=== PATIENT | male | born 1960 | race Caucasian/White ===

== ENCOUNTER → 2016-07-28 | Outpatient (CLI) | payer OTHER ==
[2016-07-28 09:48] LABS: CH 32.7; CHCM 35.2; HGB 16.3 gm/dL (13.0-17.5); MCH 32.3 pg (25.0-35.0); MCHC 34.6 g/dL (31.0-37.0); MCV 93.2 fL (80.0-100.0); Mean Platelet Volume 6.2; RBC 5.05 m/uL (4.30-5.90); RDW 13.1 % (11.5-15.5); WBC 6.5 k/uL (3.8-10.6)
[2016-07-28 10:20] LABS: ALT 36 U/L (21-72); AST 24 U/L (17-59); Alkaline Phosphatase 74 U/L (38-126); Anion Gap 11 mmol/L; Blood Urea Nitrogen 16 mg/dL (9-20); Calcium 9.3 mg/dL (8.4-10.2); Carbon Dioxide 26 mmol/L (22-30); Chloride 107 mmol/L (98-107); Cholesterol 160 mg/dL (<200); Glucose 103 mg/dL (74-99); HDL Cholesterol 70 mg/dL (40-60); Non-African American GFR(MDRD) >60 (>60 ml/min/1.73 sqM); Potassium 4.8 mmol/L (3.5-5.1); Sodium 144 mmol/L (137-145); Total Bilirubin 0.9 mg/dL (0.2-1.3); Total Protein 7.2 g/dL (6.3-8.2); Triglycerides 127 mg/dL (<150)
[2016-07-28 11:00] LABS: Hepatitis C Virus IgG Index 0.33
[2016-07-28 11:10] LABS: Hepatitis C Virus IgG Ab Negative (Negative)
== END | disposition home or self-care (01) ==
LOC: LABWHC1 09:12
PROVIDERS: ATTEND Family Medicine
DX: I10 Essential (primary) hypertension (principal); Z13.9 Encounter for screening, unspecified
CPT/HCPCS: 36415; 80053; 80061; 85027; 86803

== ENCOUNTER → 2016-08-29 | Outpatient (CLI) | payer OTHER ==
[2016-08-29 10:20] LABS: CH 33.3; CHCM 36.1; HDW 2.73; HGB 15.4 gm/dL (13.0-17.5); MCH 32.4 pg (25.0-35.0); MCV 92.6 fL (80.0-100.0); Mean Platelet Volume 7.6; RBC 4.76 m/uL (4.30-5.90); RDW 12.9 % (11.5-15.5); WBC 6.9 k/uL (3.8-10.6)
[2016-08-29 10:32] LABS: ALT 24 U/L (21-72); AST 21 U/L (17-59); Alkaline Phosphatase 83 U/L (38-126); Anion Gap 11 mmol/L; Blood Urea Nitrogen 21 mg/dL (9-20); Calcium 9.3 mg/dL (8.4-10.2); Carbon Dioxide 28 mmol/L (22-30); Chloride 102 mmol/L (98-107); Cholesterol 149 mg/dL (<200); Glucose 90 mg/dL (74-99); HDL Cholesterol 77 mg/dL (40-60); Non-African American GFR(MDRD) >60 (>60 ml/min/1.73 sqM); Potassium 4.7 mmol/L (3.5-5.1); Sodium 141 mmol/L (137-145); Total Bilirubin 0.9 mg/dL (0.2-1.3); Total Protein 7.6 g/dL (6.3-8.2); Triglycerides 74 mg/dL (<150)
== END | disposition home or self-care (01) ==
LOC: LABWHC1 08:27
PROVIDERS: ATTEND Family Medicine
DX: I10 Essential (primary) hypertension (principal)
CPT/HCPCS: 36415; 80053; 80061; 85027

== ENCOUNTER → 2018-06-22 | Outpatient (CLI) | payer OTHER ==
[2018-06-22 07:55] LABS: HCT 43.1 % (39.0-53.0); HGB 14.6 gm/dL (13.0-17.5); MCH 31.7 pg (25.0-35.0); MCHC 33.9 g/dL (31.0-37.0); MCV 93.6 fL (80.0-100.0); Mean Platelet Volume 6.3; Platelet Count 313 k/uL (150-450); RBC 4.61 m/uL (4.30-5.90); RDW 12.9 % (11.5-15.5); WBC 15.5 k/uL (3.8-10.6)
[2018-06-22 08:06] LABS: Appearance,Urine Clear (Clear); Bilirubin,Urine Negative (Negative); Blood,Urine Negative (Negative); Color,Urine Yellow; Glucose,Urine (UA) Negative (Negative); Ketones,Urine Negative (Negative); Leukocyte Esterase,Urine Negative (Negative); Nitrite,Urine Negative (Negative); Protein,Urine Negative (Negative); Specific Gravity,Urine 1.015 (1.001-1.035); Urobilinogen,Urine <2.0 mg/dL (<2.0)
[2018-06-22 11:58] LABS: Albumin 4.5 g/dL (3.80-4.90); Albumin/Globulin Ratio 2.25 (1.20-2.10); Anion Gap 10.9 mmol/L (4.00-12.00); Calcium 9.1 mg/dL (8.7-10.3); Carbon Dioxide 24.1 mmol/L (21.6-31.8); LDL Cholesterol,Calculated 69.2 mg/dL (0.0-131.0); Potassium 4.4 mmol/L (3.5-5.5); Total Bilirubin 0.8 mg/dL (0.2-1.2); Total Protein 6.5 g/dL (6.2-8.2); VLDL Calculation 14.8 mg/dL (5.00-40.00)
== END ==
LOC: LABWHC1 07:16
PROVIDERS: ATTEND Family Medicine
DX: Z00.01 Encounter for general adult medical examination with abnormal findings (principal)
CPT/HCPCS: 36415; 80053; 80061; 81003; 84153; 85027

== ENCOUNTER 2019-06-19 13:52 | Emergency (ER) | payer OTHER ==
[2019-06-19 14:15] VITALS: BP 142/94; PULSE 82; RESP 19; TEMP 97.8
--- NOTE | 2019-06-19 14:54 | ED ---
General Adult HPI - General Chief complaint: Recheck/Abnormal Lab/Rx Stated complaint: Abnormal Labs Time Seen by Provider: 06/19/19 14:27 Source: patient, RN notes reviewed Mode of arrival: ambulatory Limitations: no limitations - History of Present Illness Initial comments: 59-year-old male presents for elevated PT/INR. Patient is currently taking Co umadin. States he has been on this for about 8-10 years. 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 Patient states he had his monthly PT INR check today and got a call from Dr. Good that it was elevated. Patient was told to come to the emergency department. Patient denies bleeding from anywhere including epistaxis, rectal bleeding, hematuria. Denies headache. Denies any complaints at this time. States he did not take his Coumadin today.Patient has no other complaints at this time including shortness of breath, chest pain, abdominal pain, nausea or vomiting, headache, or visual changes. - Related Data Allergies Allergy/AdvReac Type Severity Reaction Status Date / Time No Known Allergies Allergy Verified 06/19/19 14:15 Review of Systems ROS Statement: Those systems with pertinent positive or pertinent negative responses have been documented in the HPI. ROS Other: All systems not noted in ROS Statement are negative. Past Medical History Past Medical History: Asthma, COPD, Deep Vein Thrombosis (DVT), Hyperlipidemia History of Any Multi-Drug Resistant Organisms: None Reported Past Surgical History: Hernia Repair Additional Past Surgical History / Comment(s): cataract surgery Past Psychological History: No Psychological Hx Reported Smoking Status: Never smoker Past Alcohol Use History: Occasional Past Drug Use History: Marijuana General Exam Limitations: no limitations General appearance: alert, in no apparent distress Head exam: Present: atraumatic Eye exam: Present: normal appearance, PERRL, EOMI. Absent: scleral icterus, conjunctival injection, periorbital swelling ENT exam: Present: normal exam, mucous membranes moist Neck exam: Present: normal inspection Respiratory exam: Present: normal lung sounds bilaterally. Absent: respiratory distress, wheezes, rales, rhonchi, stridor Cardiovascular Exam: Present: regular rate, normal rhythm, normal heart sounds. Absent: systolic murmur, diastolic murmur, rubs, gallop, clicks Course Vital Signs 06/19/19 14:11 Temperature 97.8 F Pulse Rate 82 Respiratory 19 Rate Blood Pressure 142/94 O2 Sat by Pulse 96 Oximetry Medical Decision Making - Medical Decision Making vitals are stable. Physical exam is unremarkable. PT/INR from blood draw earlier today was reviewed and is 6.6. discussed this case with Dr. Thao. Recommendations are to hold Coumadin for any INR between 5 and 10. Vitamin K is contraindicated at this point. Patient is not having any bleeding. We do not see any validity and repeating the PT/INR so closely to the first blood draw. Recommend the patient hold his Coumadin for 2 days and have his INR repeated on Monday. Recommend that he discussed this plan with Dr. Good today so he is on board. Recommend he return here to any bleeding or any other worsening symptoms. Discussed increased risk of bleeding including with hitting his head or headache. Disposition Clinical Impression: Elevated INR Disposition: HOME SELF-CARE Condition: Good Instructions (If sedation given, give patient instructions): Elevated INR (ED) Additional Instructions: please hold Coumadin for the next 2 days. Please have this rechecked outpatient on Monday. Call Dr. Good today to discuss this plan with him. Return to the emergency department if you have any worsening symptoms or bleeding. Is patient prescribed a controlled substance at d/c from ED?: No Referrals: Suhas Good MD [Primary Care Provider] - 1-2 days Time of Disposition: 14:53
== END 2019-06-19 15:00 | disposition home or self-care (01) ==
LOC: EC 13:52
DX: R79.1 Abnormal coagulation profile (principal); Z79.01 Long term (current) use of anticoagulants; Z86.718 Personal history of other venous thrombosis and embolism
CPT/HCPCS: 99282

== ENCOUNTER → 2019-06-19 | Outpatient (CLI) | payer OTHER ==
[2019-06-19 11:05] LABS: HCT 42.3 % (39.0-53.0); HGB 14.9 gm/dL (13.0-17.5); MCH 32.8 pg (25.0-35.0); MCHC 35.1 g/dL (31.0-37.0); MCV 93.3 fL (80.0-100.0); Mean Platelet Volume 6.9; Platelet Count 338 k/uL (150-450); RBC 4.53 m/uL (4.30-5.90); RDW 12.7 % (11.5-15.5); WBC 7.1 k/uL (3.8-10.6)
[2019-06-19 12:03] LABS: Prothrombin Time 63.6 sec (9.0-12.0)
[2019-06-19 12:11] LABS: INR 6.6 (<1.2)
[2019-06-19 16:31] LABS: ALT 16 U/L (10-49); AST 22 U/L (14-35); African American GFR (CKD) 111.7 (60.0-200.0); Albumin/Globulin Ratio 2.37 (1.60-3.17); Alkaline Phosphatase 73 U/L (41-126); Chloride 104 mmol/L (96-109); Chol/HDL Ratio 1.86; Cholesterol 143 mg/dL (0-200); Globulin 1.9 g/dL (1.6-3.3); Glucose 92 mg/dL (70-110); Non-African American GFR(CKD) 96.4 (60.0-200.0); Potassium 4.5 mmol/L (3.5-5.5); Sodium 140 mmol/L (135-145); Total Bilirubin 0.5 mg/dL (0.2-1.2); Total Protein 6.4 g/dL (6.2-8.2); Triglycerides <50.0 mg/dL (0.0-149.0)
[2019-06-19 16:41] LABS: Appearance,Urine Clear (Clear); Bilirubin,Urine Negative (Negative); Blood,Urine Negative (Negative); Color,Urine Yellow; Glucose,Urine (UA) Negative (Negative); Ketones,Urine Negative (Negative); Leukocyte Esterase,Urine Negative (Negative); Nitrite,Urine Negative (Negative); PH, Urine 7.5 (5.0-8.0); Protein,Urine Negative (Negative); Specific Gravity,Urine 1.016 (1.001-1.035)
== END | disposition home or self-care (01) ==
LOC: LABWHC1 10:27
PROVIDERS: ATTEND Family Medicine
DX: Z00.01 Encounter for general adult medical examination with abnormal findings (principal); I82.509 Chronic embolism and thrombosis of unspecified deep veins of unspecified lower extremity
CPT/HCPCS: 36415; 80053; 80061; 81003; 84153; 85027; 85610

== ENCOUNTER → 2019-06-21 | Outpatient (CLI) | payer OTHER ==
[2019-06-21 11:41] LABS: INR 2.9 (<1.2); Prothrombin Time 27.7 sec (9.0-12.0)
== END | disposition home or self-care (01) ==
LOC: LABWHC1 09:41
PROVIDERS: ATTEND Family Medicine
DX: I82.509 Chronic embolism and thrombosis of unspecified deep veins of unspecified lower extremity (principal)
CPT/HCPCS: 36415; 85610

== ENCOUNTER 2023-04-28 11:09 | Day surgery (SDC) | payer OTHER ==
[2023-04-27 08:46] VITALS: BMI 28.5
[~2023-04-28 11:09] MED LIST: LACTATED RINGERS 1,000 ML IV SCH
[2023-04-28 12:57] VITALS: RESP 16; TEMP 97
[2023-04-28] MEDS ORDERED: PROPOFOL 10 MG/ML 20 ML VIAL IV ONE (13:30)
--- NOTE | 2023-04-28 13:42 | P.PCN ---
Date of Procedure: 04/28/23 Procedure(s) Performed: BRIEF HISTORY: Patient is a 62-year-old pleasant white male scheduled for an elective colonoscopy as a part of screening for colon cancer. PROCEDURE PERFORMED: Colonoscopy. PREOPERATIVE DIAGNOSIS: Screening for colon cancer. IV sedation per Anesthesia. PROCEDURE: After informed consent was obtained, the patient, was brought into the endoscopy unit. IV sedation was administered by Anesthesia under continuous monitoring. Digital rectal examination was normal. Initially the Olympus CF-160 flexible video colonoscope was then inserted in the rectum, gradually advanced into the cecum without any difficulty. Careful examination was performed as the scope was gradually being withdrawn. Ileocecal valve and the appendiceal orifice were visualized and appeared normal. Prep was excellent. Mucosa of the cecum, ascending colon, transverse colon, descending colon, sigmoid colon, and rectum appeared normal. Scattered sigmoid diverticula cyst. Retroflexion was performed in the rectum and no lesions were seen. The patient tolerated the procedure well. IMPRESSION: Normal-appearing colon from rectum to cecum with no evidence of colorectal neoplasia . Scattered sigmoid diverticulosis. RECOMMENDATIONS: Findings of this examination were discussed with the patient as well as his family. He was advised to have a repeat screening colonoscopy in 10 years..
[2023-04-28 14:20] VITALS: BP 142/87; PULSE 84
== END 2023-04-28 16:27 | disposition home or self-care (01) ==
LOC: ORWHC2ENDO 11:09
PROVIDERS: ATTEND Internal Medicine Gastroenterology
DX: Z12.11 Encounter for screening for malignant neoplasm of colon (principal); K57.30 Diverticulosis of large intestine without perforation or abscess without bleeding; I10 Essential (primary) hypertension; E78.5 Hyperlipidemia, unspecified; J45.909 Unspecified asthma, uncomplicated; J44.9 Chronic obstructive pulmonary disease, unspecified; Z79.51 Long term (current) use of inhaled steroids; Z86.718 Personal history of other venous thrombosis and embolism; Z79.899 Other long term (current) drug therapy
CPT/HCPCS: 45378; J2704

== ENCOUNTER 2024-12-16 11:10 | Observation (INO) | payer MEDICARE, OTHER ==
[2024-12-16] MEDS: ASPIRIN 81 MG PO STA (11:58)
[2024-12-16 11:59] LABS: Basophils # (A) 0.04 10*3/uL (0.00-0.10); Basophils % (A) 0.6 %; Eosinophils # (A) 0.15 10*3/uL (0.04-0.35); Eosinophils % (A) 2.1 %; HCT 38.9 % (39.6-50.0); HGB 14.4 g/dL (13.0-17.0); Lymphocytes % (A) 15.7 %; MCH 34.6 pg (27.0-32.0); MCV 93.5 fL (80.0-97.0); Mean Platelet Volume 8.7 fL (9.5-12.2); Monocytes # (A) 1.13 10*3/uL (0.20-1.00); Monocytes % (A) 16.1 %; Neutrophils # (A) 4.55 10*3/uL (1.80-7.70); Neutrophils % (A) 65.1 %; Platelet Count 246 10*3/uL (140-440); RBC 4.16 10*6/uL (4.40-5.60); RDW 12.1 % (11.5-14.5)
[2024-12-16] MEDS: NITROGLYCERIN OINT 1 INCH/GM PACKET TOPICAL STA (11:59)
[2024-12-16 12:12] LABS: ALT 25 U/L (4-49); AST 30 U/L (17-59); African American GFR (CKD) >90 (>60 ml/min/1.73 sqM); Albumin 4.2 g/dL (3.5-5.0); Alkaline Phosphatase 100 U/L (38-126); Anion Gap 8 mmol/L; Blood Urea Nitrogen 9 mg/dL (9-20); Calcium 9.7 mg/dL (8.4-10.2); Carbon Dioxide 25 mmol/L (22-30); Chloride 96 mmol/L (98-107); Glucose 98 mg/dL (74-99); Magnesium 1.9 mg/dL (1.6-2.3); Non-African American GFR(CKD) >90 (>60 ml/min/1.73 sqM); Sodium 129 mmol/L (137-145); Total Bilirubin 0.6 mg/dL (0.2-1.3)
[2024-12-16 12:17] LABS: INR 1.9 (<1.2); Partial Thromboplastin Time 29.7 sec (22.0-30.0); Prothrombin Time 19.3 sec (10.0-12.5)
--- NOTE | 2024-12-16 12:28 | XR ---
EXAMINATION TYPE: XR chest 2V DATE OF EXAM: 12/16/2024 12:14 PM COMPARISON: 06/03/2015 CLINICAL INDICATION: Male, 64 years old with history of Chest Pain, TECHNIQUE: XR chest 2V view(s) obtained. FINDINGS: The heart size is normal. The pulmonary vasculature is normal. The lungs are clear. IMPRESSION: 1. No acute pulmonary process. [facility], , 12/16/2024 12:25 PM
[2024-12-16] MEDS ORDERED: DOCUSATE 100 MG CAP PO PRN (14:12)
[2024-12-16] MEDS ORDERED: PROCHLORPERAZINE 5 MG TAB PO PRN (14:12)
[2024-12-16] MEDS ORDERED: NITROGLYCERIN SL TABS 0.4 MG TAB SUBLINGUAL PRN (14:15)
--- NOTE | 2024-12-16 14:18 | P.HPIM ---
History of Present Illness H&P Date: 12/16/24 Patient is a 64-year-old male with past medical history of DVT for than 20 years ago on Coumadin, unclear why, reports only 1 episode of DVT, HLD, COPD, who presented to the ER on 12/16 with chest pain. Started having symptoms 2 weeks ago, reports intermittent chest pain, left-sided, nonradiating, not associated with shortness of breath, sweating, nausea, vomiting. States that it can occur at any time including nighttime, he is able to cut the grass and stay active, reports that the pain gets better when he leans forward. No other elevating factors, denies noticing any aggravating factors. He denies any recent travels, compliant with Coumadin. No previous history of heart attacks, no dizziness, lightheadedness. No recent viral infections, no fevers, chills, abdominal pain. On arrival afebrile, heart rate in 80s, BP 135/85, SpO2 98% on room air. Lab work showed normal WBC count, hemoglobin, platelet count. INR 1.9, PT 19.3, D-dimer negative. Sodium 129, normal potassium, chloride 96, creatinine 0.54, normal GFR, calcium, and liver enzymes, troponin negative. Chest x-ray showed no evidence of acute pulmonary process. Patient will be admitted under observation for further evaluation of chest pain, cardiology consultation. Pertinent positives and negatives as discussed in HPI, a complete review of systems was performed and all other systems are negative. Patient seen and examined at bedside. Vital signs reviewed General: nontoxic, no distress, appears at stated age Derm: warm, dry Head: atraumatic, normocephalic, symmetric Eyes: EOMI, no lid lag, anicteric sclera, pupils equal round reactive to light ENT: Nose and ears atraumatic Neck: No thyromegaly, supple Mouth: no lip lesion, mucus membranes moist Cardiovascular: S1S2 reg, no murmur, no edema Lungs: clear to auscultation bilateral, no rhonchi, no rales, no wheeze, no accessory muscle use Abdominal: soft, nontender to palpation, no guarding, no appreciable organomegaly Ext: no gross muscle atrophy, muscle strength muscle strength 5 out of 5 in all 4 extremities, no contractures Neuro: CN II-XII grossly intact Psych: Alert, oriented, appropriate affect Assessment/Plan: Atypical chest pain - Check TSH, A1c, lipid panel, trend troponin - Start aspirin 81 mg daily - Cardiology consulted, appreciate recommendations -Sublingual nitroglycerin as needed Hypertension: Continue home lisinopril/hydrochlorothiazide 10/12.5 daily Hypochloremic hyponatremia -Start NS at 120 cc/h, monitor BMP in the morning History of DVT: Pharmacy to dose warfarin COPD, not in acute exacerbation, continue Incruse Ellipta 62.5 daily, Wixela 250/50 twice daily The patient is admitted with an anticipated less than 2 midnight stay as observation status for evaluation of chest pain, hyponatremia. CODE STATUS: Full DVT prophylaxis: Warfarin Anticipated discharge date: TBD Anticipated discharge place: Home A total of 40 minutes was spent on the care of this complex patient more than 50% of the time was spent in counseling and care coordination. Past Medical History Past Medical History: Asthma, Cancer, COPD, Deep Vein Thrombosis (DVT), Hyperlipidemia, Hypertension Additional Past Medical History / Comment(s): Hx skin cancer on chest, head and shoulder. History of Any Multi-Drug Resistant Organisms: None Reported Past Surgical History: Hernia Repair Additional Past Surgical History / Comment(s): Cataract surgery. Past Anesthesia/Blood Transfusion Reactions: No Reported Reaction Past Psychological History: No Psychological Hx Reported Smoking Status: Never smoker Past Alcohol Use History: Daily Past Drug Use History: Marijuana - Past Family History Father Family Medical History: Cancer Medications and Allergies Home Medications Medication Instructions Recorded Confirmed Type Lisinopril-Hctz 10-12.5 mg 1 tab PO DAILY 04/27/23 12/16/24 History [Zestoretic 10-12.5] Warfarin Sodium 5 mg PO MOTUTHFRSA@2100 04/27/23 12/16/24 History Warfarin Sodium 10 mg PO SUWE@2100 04/27/23 12/16/24 History Fluticasone Propion/Salmeterol 1 puff INHALATION RT-BID 12/16/24 12/16/24 History [Wixela 250-50 Inhub] Umeclidinium [place] [Incruse 1 puff INHALATION RT-DAILY 12/16/24 12/16/24 History Ellipta] [facility](Unknown) 1 tab PO DAILY 12/16/24 12/16/24 History [facility] Fiber Caps(Unknown) 1 cap PO DAILY 12/16/24 12/16/24 History Allergies Allergy/AdvReac Type Severity Reaction Status Date / Time No Known Allergies Allergy Verified 12/16/24 12:54 Physical Exam Vitals: Vital Signs Temp Pulse Pulse Resp BP Pulse Ox 12/16/24 12:00 81 18 130/81 94 L 12/16/24 11:24 83 12/16/24 11:11 97.6 F 88 16 135/85 98 Intake and Output 12/15/24 12/16/24 12/16/24 22:59 06:59 14:59 Other: Weight 83.915 kg Results CBC & Chem 7: 12/16/24 11:51 12/16/24 11:51 Labs: Abnormal Lab Results - Last 24 Hours (Table) 12/16/24 12/16/24 12/16/24 Range/Units 11:51 11:51 11:51 RBC 4.16 L (4.40-5.60) 10*6/uL Hct 38.9 L (39.6-50.0) % MCH 34.6 H (27.0-32.0) pg MPV 8.7 L (9.5-12.2) fL Monocytes # 1.13 H (0.20-1.00) 10*3/uL PT 19.3 H (10.0-12.5) sec INR 1.9 H (<1.2) Sodium 129 L (137-145) mmol/L Chloride 96 L (98-107) mmol/L Creatinine 0.54 L (0.66-1.25) mg/dL
[2024-12-16] MEDS: SODIUM CHLORIDE 0.9% 1,000 ML IV SCH (14:28)
--- NOTE | 2024-12-16 15:11 | ED ---
General Adult HPI - General Chief complaint: Chest Pain Stated complaint: Chest pain Time Seen by Provider: 12/16/24 11:15 Source: patient, RN notes reviewed, old records reviewed Mode of arrival: ambulatory Limitations: no limitations - History of Present Illness Initial comments: This is a 64-year-old male who presents to the emergency department stating he has had intermittent chest pain for the last 2 weeks. Patient states the last week is gotten considerably worse. Patient states when it comes it lasts for about 5 minutes or so and then eventually subsides. Patient states he has some radiation into his left arm as well. Patient denies any diaphoretic episode. Patient denies any difficulty breathing. Patient denies any recent fever chills or cough. Patient denies abdominal pain patient has nausea vomiting - Related Data Home Medications Medication Instructions Recorded Confirmed Lisinopril-Hctz 10-12.5 mg 1 tab PO DAILY 04/27/23 12/16/24 [Zestoretic 10-12.5] Warfarin Sodium 5 mg PO MOTUTHFRSA@2100 04/27/23 12/16/24 Warfarin Sodium 10 mg PO SUWE@2100 04/27/23 12/16/24 Fluticasone Propion/Salmeterol 1 puff INHALATION RT-BID 12/16/24 12/16/24 [Wixela 250-50 Inhub] Umeclidinium [place] [Incruse 1 puff INHALATION RT-DAILY 12/16/24 12/16/24 Ellipta] [facility](Unknown) 1 tab PO DAILY 12/16/24 12/16/24 [facility] Fiber Caps(Unknown) 1 cap PO DAILY 12/16/24 12/16/24 Allergies Allergy/AdvReac Type Severity Reaction Status Date / Time No Known Allergies Allergy Verified 12/16/24 12:54 Review of Systems ROS Statement: Those systems with pertinent positive or pertinent negative responses have been documented in the HPI. ROS Other: All systems not noted in ROS Statement are negative. Past Medical History Past Medical History: Asthma, Cancer, COPD, Deep Vein Thrombosis (DVT), Hyperlipidemia, Hypertension Additional Past Medical History / Comment(s): Hx skin cancer on chest, head and shoulder. History of Any Multi-Drug Resistant Organisms: None Reported Past Surgical History: Hernia Repair Additional Past Surgical History / Comment(s): Cataract surgery. Past Anesthesia/Blood Transfusion Reactions: No Reported Reaction Past Psychological History: No Psychological Hx Reported Smoking Status: Never smoker Past Alcohol Use History: Daily Past Drug Use History: Marijuana - Past Family History Father Family Medical History: Cancer General Exam - General Exam Comments Initial Comments: GENERAL: Patient is well-developed and well-nourished. Patient is nontoxic and well- hydrated and is in mild distress. ENT: Neck is soft and supple. No significant lymphadenopathy is noted. Oropharynx is clear. Moist mucous membranes. Neck has full range of motion without eliciting any pain. EYES: The sclera were anicteric and conjunctiva were pink and moist. Extraocular movements were intact and pupils were equal round and reactive to light. Eyelids were unremarkable. PULMONARY: Unlabored respirations. Good breath sounds bilaterally. No audible rales rho nchi or wheezing was noted. CARDIOVASCULAR: There is a regular rate and rhythm without any murmurs gallops or rubs. ABDOMEN: Soft and nontender with normal bowel sounds. SKIN: Skin is clear with no lesions or rashes and otherwise unremarkable. NEUROLOGIC: Patient is alert and oriented x3. Cranial nerves II through XII are grossly intact. Motor and sensory are also intact. Normal speech, volume and content. Symmetrical smile. MUSCULOSKELETAL: Normal extremities with adequate strength and full range of motion. LYMPHATICS: No significant lymphadenopathy is noted PSYCHIATRIC: Normal psychiatric evaluation. Limitations: no limitations Course Vital Signs 12/16/24 12/16/24 12/16/24 11:11 11:24 12:00 Temperature 97.6 F Pulse Rate 88 81 Pulse Rate [ 83 Yacht Captain ] Respiratory 16 18 Rate Blood Pressure 135/85 130/81 O2 Sat by Pulse 98 94 L Oximetry 12/16/24 13:40 Temperature Pulse Rate 78 Pulse Rate [ Yacht Captain ] Respiratory 18 Rate Blood Pressure 107/75 O2 Sat by Pulse 97 Oximetry Medical Decision Making - Medical Decision Making EKG is interpreted by myself. EKG shows sinus rhythm at 83 bpm parable is 242 QRS 103 QT interval is 369 QTc is 408. Patient's EKG shows no ST segment ovation or depression. Was pt. sent in by a medical professional or institution (, PA, CARRY IN WORKER, urgent care, hospital, or retirement...) When possible be specific @ -No Did you speak to anyone other than the patient for history (EMS, parent, family, police, friend...)? What history was obtained from this source @ -No Did you review nursing and triage notes (agree or disagree)? Why? @ -I reviewed and agree with nursing and triage notes Were old charts reviewed (outside hosp., previous admission, EMS record, old EKG, old radiological studies, urgent care reports/EKG's, retirement records)? Report findings @ -No old charts were reviewed Differential Diagnosis? @ -Differential Chest Pain: Stable Angina, Unstable Angina, STEMI, NSTEMI Aortic Dissection, Pneumothorax, Musculoskeletal, Esophageal Spasm GERD, Cholecystitis, Pancreatitis, Zoster, this is not meant to be an all-inclusive list. EKG interpreted by me (3pts min.). @ -As above X-rays interpreted by me (1pt min.). @ -Chest x-ray shows no acute abnormality CT interpreted by me (1pt min.). @ -None done U/S interpreted by me (1pt. min.). @ -None done What testing was considered but not performed or refused? (CT, X-rays, U/S, labs)? Why? @ -None What meds were considered but not given or refused? Why? @ -None Did you discuss the management of the patient with other professionals (professionals i.e. , PA, CARRY IN WORKER, lab, RT, psych nurse, social insurance adviser, sat math tutor, teacher, environmental health officer, adult protective caseworker)? Give summary @ -I spoke with the sound physicians agreed to meet the patient admit the patie nt recommending orders Was smoking cessation discussed for >3mins.? @ -No Was critical care preformed (if so, how long)? @ -No Were there social determinants of health that impacted care today? How? ( Homelessness, low income, unemployed, alcoholism, drug addiction, transportation, low edu. Level, literacy, decrease access to med. care, mcc, rehab)? @ -No Was there de-escalation of care discussed even if they declined (Discuss DNR or withdrawal of care, Hospice)? DNR status @ -No What co-morbidities impacted this encounter? (DM, HTN, Smoking, COPD, CAD, Cancer, CVA, ARF, Chemo, Hep., AIDS, mental health diagnosis, sleep apnea, morbid obesity)? @ -None Was patient admitted / discharged? Hospital course, mention meds given and route, prescriptions, significant lab abnormalities, going to OR and other pertinent info. @ -Patient's chest pain came and went multiple times during the ED stay. There was no ST segment elevation. Patient had no elevated troponin. Patient's chest x-ray is normal and the rest of lab work was relatively normal. I spoke with sound physicians agreed to admit the patient admit the patient I consulted cardiology Undiagnosed new problem with uncertain prognosis? @ -No Drug Therapy requiring intensive monitoring for toxicity (Heparin, Nitro, Insulin, Cardizem)? @ -No Were any procedures done? @ -No Diagnosis/symptom? @ -Chest pain Acute, or Chronic, or Acute on Chronic? @ -acute Uncomplicated (without systemic symptoms) or Complicated (systemic symptoms)? @ -Complicated Side effects of treatment? @ -No Exacerbation, Progression, or Severe Exacerbation? @ -No Poses a threat to life or bodily function? How? (Chest pain, USA, SC, pneumonia, PE, COPD, DKA, ARF, appy, cholecystitis, CVA, Diverticulitis, Homicidal, Suicidal, threat to staff... and all critical care pts) @ -Yes this can lead to SC and endorgan dysfunction - Lab Data Result diagrams: 12/16/24 11:51 12/16/24 11:51 Lab Results 12/16/24 12/16/24 12/16/24 Range/Units 11:51 11:51 11:51 WBC 7.00 (4.50-10.00) 10*3/uL RBC 4.16 L (4.40-5.60) 10*6/uL Hgb 14.4 (13.0-17.0) g/dL Hct 38.9 L (39.6-50.0) % MCV 93.5 (80.0-97.0) fL MCH 34.6 H (27.0-32.0) pg MCHC 37.0 (32.0-37.0) g/dL Plt Count 246 (140-440) 10*3/uL MPV 8.7 L (9.5-12.2) fL Immature Gran % (Auto) 0.4 % Neutrophils % 65.1 % Lymphocytes % 15.7 % Monocytes % 16.1 % Eosinophils % 2.1 % Basophils % 0.6 % Immature Gran # 0.03 (0.00-0.04) 10*3/uL Neutrophils # 4.55 (1.80-7.70) 10*3/uL Lymphocytes # 1.10 (0.90-5.00) 10*3/uL Monocytes # 1.13 H (0.20-1.00) 10*3/uL Eosinophils # 0.15 (0.04-0.35) 10*3/uL Basophils # 0.04 (0.00-0.10) 10*3/uL PT 19.3 H (10.0-12.5) sec INR 1.9 H (<1.2) APTT 29.7 (22.0-30.0) sec D-Dimer <0.17 (<0.60) mg/L FEU Sodium 129 L (137-145) mmol/L Potassium 4.0 (3.5-5.1) mmol/L Chloride 96 L (98-107) mmol/L Carbon Dioxide 25 (22-30) mmol/L Anion Gap 8 mmol/L BUN 9 (9-20) mg/dL Creatinine 0.54 L (0.66-1.25) mg/dL Est GFR (CKD-EPI)AfAm >90 (>60 ml/min/1.73 sqM) Est GFR (CKD-EPI)NonAf >90 (>60 ml/min/1.73 sqM) Glucose 98 (74-99) mg/dL Calcium 9.7 (8.4-10.2) mg/dL Magnesium 1.9 (1.6-2.3) mg/dL Total Bilirubin 0.6 (0.2-1.3) mg/dL AST 30 (17-59) U/L ALT 25 (4-49) U/L Alkaline Phosphatase 100 (38-126) U/L Troponin I (0.000-0.034) ng/mL Total Protein 7.0 (6.3-8.2) g/dL Albumin 4.2 (3.5-5.0) g/dL TSH (0.465-4.680) mIU/L 12/16/24 12/16/24 Range/Units 11:51 11:51 WBC (4.50-10.00) 10*3/uL RBC (4.40-5.60) 10*6/uL Hgb (13.0-17.0) g/dL Hct (39.6-50.0) % MCV (80.0-97.0) fL MCH (27.0-32.0) pg MCHC (32.0-37.0) g/dL Plt Count (140-440) 10*3/uL MPV (9.5-12.2) fL Immature Gran % (Auto) % Neutrophils % % Lymphocytes % % Monocytes % % Eosinophils % % Basophils % % Immature Gran # (0.00-0.04) 10*3/uL Neutrophils # (1.80-7.70) 10*3/uL Lymphocytes # (0.90-5.00) 10*3/uL Monocytes # (0.20-1.00) 10*3/uL Eosinophils # (0.04-0.35) 10*3/uL Basophils # (0.00-0.10) 10*3/uL PT (10.0-12.5) sec INR (<1.2) APTT (22.0-30.0) sec D-Dimer (<0.60) mg/L FEU Sodium (137-145) mmol/L Potassium (3.5-5.1) mmol/L Chloride (98-107) mmol/L Carbon Dioxide (22-30) mmol/L Anion Gap mmol/L BUN (9-20) mg/dL Creatinine (0.66-1.25) mg/dL Est GFR (CKD-EPI)AfAm (>60 ml/min/1.73 sqM) Est GFR (CKD-EPI)NonAf (>60 ml/min/1.73 sqM) Glucose (74-99) mg/dL Calcium (8.4-10.2) mg/dL Magnesium (1.6-2.3) mg/dL Total Bilirubin (0.2-1.3) mg/dL AST (17-59) U/L ALT (4-49) U/L Alkaline Phosphatase (38-126) U/L Troponin I <0.012 (0.000-0.034) ng/mL Total Protein (6.3-8.2) g/dL Albumin (3.5-5.0) g/dL TSH 2.500 (0.465-4.680) mIU/L Disposition Clinical Impression: Chest pain Disposition: ADMITTED IP TO THIS HOSP Referrals: Suhas Good MD [Primary Care Provider] - 1-2 days Time of Disposition: 15:12
[2024-12-16 18:35] LABS: Chol/HDL Ratio 1.71 Ratio; LDL Cholesterol,Calculated 48.1 mg/dL (0.0-131.0)
[2024-12-16] MEDS: SYMBICORT 80-4.5 MCG INHALER INHALATION SCH (19:42)
[2024-12-16] MEDS: WARFARIN 5 MG TAB PO ONE (21:11)
[2024-12-16] MEDS ORDERED: LORazepam 1 MG TAB PO PRN ×3 (23:12)
[2024-12-16] MEDS ORDERED: LORazepam 0.5 MG TAB PO PRN (23:12)
[2024-12-17 05:59] LABS: INR 1.8 (<1.2); Prothrombin Time 18.4 sec (10.0-12.5)
[2024-12-17] MEDS: TIOTROPIUM 2.5 MCG INHALER INHALATION SCH (08:06)
[2024-12-17 08:25] LABS: BUN/Creat Ratio 15.17 Ratio (12.00-20.00); Blood Urea Nitrogen 9.1 mg/dL (9.0-27.0); Calcium 8.4 mg/dL (8.7-10.3); Carbon Dioxide 24.4 mmol/L (21.6-31.8); Chloride 102 mmol/L (96-109); Glucose 99 mg/dL (70-110); Potassium 4.1 mmol/L (3.5-5.5); Sodium 135 mmol/L (135-145)
[2024-12-17] MEDS: ASPIRIN 81 MG PO SCH (08:51)
[2024-12-17] MEDS: FOLIC ACID 1 MG TAB PO SCH (08:51)
[2024-12-17] MEDS: THIAMINE 100 MG TAB PO SCH (08:51)
[2024-12-17] MEDS: LISINOPRIL-HCTZ 10-12.5 MG 1 EACH TAB PO SCH (08:52)
--- NOTE | 2024-12-17 12:57 | P.CRDCN ---
History of Present Illness History of present illness: HISTORY OF PRESENT ILLNESS: This is a 64-year-old male with a past medical history significant for DVT, COPD, and daily alcohol use. 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 We have been asked to see the patient in consultation for chest pain. Patient examined at the bedside. Patient states he has been having chest pain for the past 2 weeks. He states the last couple days it has gotten worse. He reports if he burps or passes gas, the pain improves. The pain is not exertional related. Pain is not worse with deep inspiration. Denies radiation of the pain. Denies sweating or nausea or vomiting. At the time of examination, he denies chest pain or pressure. Denies SOB. DIAGNOSTICS: - EKG reveals sinus mechanism with no signs of acute ischemia. - Chest xray negative for acute process. - Laboratory data: WBC 7.0. Hemoglobin 14.4. Platelet count 246. INR 1.8. D- dimer 0.17. Sodium 129. Potassium 4.0. BUN 9. Creatinine 0.54. Troponin negative x 4. TSH 2.50 - Current home cardiac medications include warfarin 10 mg on Monday and Monday and 5 mg Monday and lisinoprilhydrochlorothiazide 10-12.5 mg daily - No previous echocardiogram, stress test, or cardiac catheterization available in EMR for review REVIEW OF SYSTEMS: At the time of my exam: CONSTITUTIONAL: Denies fever or chills. HEENT: Denies blurred vision, vision changes, or eye pain. Denies hemoptysis CARDIOVASCULAR: Denies chest pain. Denies orthopnea. Denies PND. Denies palpitations RESPIRATORY: Denies shortness of breath. GASTROINTESTINAL: Denies abdominal pain. Denies nausea or vomiting. HEMATOLOGIC: Denies bleeding disorders. GENITOURINARY: Denies any blood in urine. SKIN: Denies pruitis. Denies rash. PHYSICAL EXAM: VITAL SIGNS: Reviewed. GENERAL: Well-developed in no acute distress. HEENT: Head is normocephalic. Pupils are equal, round. Sclerae anicteric. Mucous membranes of the mouth are moist. Neck supple. No JVD or thyromegaly LUNGS: Respirations even and unlabored. Lungs essentially clear to auscultation bilaterally. HEART: Regular rate and rhythm. S1 and S2 heard. ABDOMEN: Soft. Nondistended. Nontender. EXTREMITIES: Normal range of motion. No clubbing or cyanosis. Peripheral pulses intact. No lower extremity edema NEUROLOGIC: Awake and alert. Oriented x 3. ASSESSMENT: Chest pain, troponin negative x 4, appears GI related Hyponatremia History of DVT, on Coumadin outpatient Subtherapeutic INR Hypertension History of COPD Daily alcohol use PLAN: An acute coronary event has been ruled out Obtain 2D echo to assess cardiac structure and function Continue Coumadin. Monitor INR Abstinence from alcohol recommended May discharge home today pending echo results Will plan for outpatient stress testing Further recommendations pending patient course Nurse practitioner note has been reviewed by physician. Signing provider agrees with the documented findings, assessment, and plan of care documented by CLINIC OFFICE COORDINATOR as a scribe. Past Medical History Past Medical History: Asthma, Cancer, COPD, Deep Vein Thrombosis (DVT), Hyperlipidemia, Hypertension Additional Past Medical History / Comment(s): Hx skin cancer on chest, head and shoulder. History of Any Multi-Drug Resistant Organisms: None Reported Past Surgical History: Hernia Repair Additional Past Surgical History / Comment(s): Cataract surgery. Past Anesthesia/Blood Transfusion Reactions: No Reported Reaction Past Psychological History: No Psychological Hx Reported Smoking Status: Never smoker Past Alcohol Use History: Daily Additional Past Alcohol Use History / Comment(s): Drinks 6-8 beers most days. Past Drug Use History: Marijuana Additional Drug Use History / Comment(s): Occasional Marijuana use. Aware no Alcohol or Marijuana use 24 hrs prior to procedure. - Past Family History Father Family Medical History: Cancer Medications and Allergies Home Medications Medication Instructions Recorded Confirmed Type Lisinopril-Hctz 10-12.5 mg 1 tab PO DAILY 04/27/23 12/16/24 History [Zestoretic 10-12.5] Warfarin Sodium 5 mg PO MOTUTHFRSA@2100 04/27/23 12/16/24 History Warfarin Sodium 10 mg PO SUWE@2100 04/27/23 12/16/24 History Fluticasone Propion/Salmeterol 1 puff INHALATION RT-BID 12/16/24 12/16/24 History [Wixela 250-50 Inhub] Umeclidinium [place] [Incruse 1 puff INHALATION RT-DAILY 12/16/24 12/16/24 History Ellipta] [facility](Unknown) 1 tab PO DAILY 12/16/24 12/16/24 History [facility](Unknown) 1 cap PO DAILY 12/16/24 12/16/24 History Allergies Allergy/AdvReac Type Severity Reaction Status Date / Time No Known Allergies Allergy Verified 12/16/24 12:54 Physical Exam Vitals: Vital Signs Temp Pulse Pulse Pulse Resp BP BP 12/17/24 07:10 98.2 F 74 65 14 120/72 12/17/24 01:06 97.5 F L 82 16 102/66 12/16/24 20:55 97.5 F L 79 18 145/74 12/16/24 20:45 98.6 F 76 16 107/69 12/16/24 19:30 74 18 111/65 12/16/24 18:43 97.8 F 74 18 117/70 12/16/24 16:00 66 18 109/74 12/16/24 13:40 78 18 107/75 12/16/24 12:00 81 18 130/81 12/16/24 11:24 83 12/16/24 11:11 97.6 F 88 16 135/85 Pulse Ox 12/17/24 07:10 95 12/17/24 01:06 95 12/16/24 20:55 97 12/16/24 20:45 96 12/16/24 19:30 96 12/16/24 18:43 96 12/16/24 16:00 97 12/16/24 13:40 97 12/16/24 12:00 94 L 12/16/24 11:24 12/16/24 11:11 98 Intake and Output 12/16/24 12/17/24 12/17/24 22:59 06:59 14:59 Other: Voiding Method Toilet Toilet # Voids 1 2 Weight 83.915 kg Results 12/16/24 11:51 12/17/24 05:06 Cardiac Enzymes 12/16/24 12/16/24 12/16/24 Range/Units 11:51 11:51 14:51 AST 30 (17-59) U/L Troponin I <0.012 <0.012 (0.000-0.034) ng/mL 12/16/24 12/17/24 Range/Units 17:47 05:06 AST (17-59) U/L Troponin I <0.012 <0.012 (0.000-0.034) ng/mL Coagulation 12/16/24 12/17/24 Range/Units 11:51 05:06 PT 19.3 H 18.4 H (10.0-12.5) sec APTT 29.7 (22.0-30.0) sec Lipids 12/16/24 Range/Units 11:51 Triglycerides 73.00 (0.00-149.00) mg/dL Cholesterol 151.00 (0.00-200.00) mg/dL HDL Cholesterol 88.30 H (40.00-60.00) mg/dL Cholesterol/HDL Ratio 1.71 Ratio CBC 12/16/24 Range/Units 11:51 WBC 7.00 (4.50-10.00) 10*3/uL RBC 4.16 L (4.40-5.60) 10*6/uL Hgb 14.4 (13.0-17.0) g/dL Hct 38.9 L (39.6-50.0) % Plt Count 246 (140-440) 10*3/uL Comprehensive Metabolic Panel 12/16/24 Range/Units 11:51 Sodium 129 L (137-145) mmol/L Potassium 4.0 (3.5-5.1) mmol/L Chloride 96 L (98-107) mmol/L Carbon Dioxide 25 (22-30) mmol/L BUN 9 (9-20) mg/dL Creatinine 0.54 L (0.66-1.25) mg/dL Glucose 98 (74-99) mg/dL Calcium 9.7 (8.4-10.2) mg/dL AST 30 (17-59) U/L ALT 25 (4-49) U/L Alkaline Phosphatase 100 (38-126) U/L Total Protein 7.0 (6.3-8.2) g/dL Albumin 4.2 (3.5-5.0) g/dL Current Medications Generic Name Dose Route Start Last Admin Trade Name Freq PRN Reason Stop Dose Admin Aspirin 81 mg 12/17/24 09:00 Aspirin 81 Mg PO DAILY JULIANA Budesonide/Formoterol Fumarate 2 puff 12/16/24 20:00 12/17/24 08:07 Symbicort 80-4.5 Mcg Inhaler INHALATION 2 puff RT-BID JULIANA Administration Docusate Sodium 100 mg 12/16/24 14:12 Docusate 100 Mg Cap PO BID PRN Constipation Folic Acid 1 mg 12/17/24 09:00 Folic Acid 1 Mg Tab PO DAILY JULIANA Lisinopril/HCTZ 1 each 12/17/24 09:00 Lisinopril-Hctz 10-12.5 Mg 1 Each Tab PO DAILY JULIANA Sodium Chloride 1,000 mls @ 120 mls/hr 12/16/24 14:15 12/17/24 06:19 Saline 0.9% IV 12/17/24 14:14 120 mls/hr .Q8H20M JULIANA Administration Lorazepam 1 mg 12/16/24 23:12 Lorazepam 1 Mg Tab PO Q4HR PRN [place] 6 To 7 Lorazepam 2 mg 12/16/24 23:12 Lorazepam 1 Mg Tab PO Q2HR PRN [place] 10 or greater Lorazepam 0.5 mg 12/16/24 23:12 Lorazepam 0.5 Mg Tab PO Q4HR PRN [place] 4 To 5 Lorazepam 2 mg 12/16/24 23:12 Lorazepam 1 Mg Tab PO Q3HR PRN [place] 8 To 9 Miscellaneous Information 1 each 12/16/24 14:17 Warfarin Per Pharmacy MISCELLANE DIRECTED PRN Per Protocol Protocol Nitroglycerin 0.4 mg 12/16/24 14:15 Nitroglycerin Sl Tabs 0.4 Mg Tab SUBLINGUAL Q10M PRN Chest Pain Prochlorperazine Maleate 5 mg 12/16/24 14:12 Prochlorperazine 5 Mg Tab PO Q8HR PRN Nausea And Vomiting Thiamine HCl 100 mg 12/17/24 09:00 Thiamine 100 Mg Tab PO DAILY JULIANA Tiotropium [place] 2 puff 12/17/24 08:00 12/17/24 08:06 Tiotropium 2.5 Mcg Inhaler INHALATION 2 puff RT-DAILY JULIANA Administration Intake and Output 12/16/24 12/17/24 12/17/24 22:59 06:59 14:59 Other: Voiding Method Toilet Toilet # Voids 1 2 Weight 83.915 kg 12/16/24 11:51 12/16/24 11:51
--- NOTE | 2024-12-17 17:10 | P.PN ---
Subjective Progress Note Date: 12/17/24 Hospital Course: Patient is a 64-year-old male with past medical history of DVT for than 20 years ago on Coumadin, unclear why, reports only 1 episode of DVT, HLD, COPD, who presented to the ER on 12/16 with chest pain. Started having symptoms 2 weeks ago, reports intermittent chest pain, left-sided, nonradiating, not associated with shortness of breath, sweating, nausea, vomiting. States that it can occur at any time including nighttime, he is able to cut the grass and stay active, reports that the pain gets better when he leans forward. No other elevating factors, denies noticing any aggravating factors. He denies any recent travels, compliant with Coumadin. No previous history of heart attacks, no dizziness, lightheadedness. No recent viral infections, no fevers, chills, abdominal pain. On arrival afebrile, heart rate in 80s, BP 135/85, SpO2 98% on room air. Lab work showed normal WBC count, hemoglobin, platelet count. INR 1.9, PT 19.3, D-dimer negative. Sodium 129, normal potassium, chloride 96, creatinine 0.54, normal GFR, calcium, and liver enzymes, troponin negative. Chest x-ray showed no evidence of acute pulmonary process. Patient will be admitted under observation for further evaluation of chest pain, cardiology consultation. ACS has been ruled out, cardiology recommended TTE that is pending 12/17 patient seen examined at bedside, chest pain resolved, no shortness of breath. Troponin remains negative, BMP unremarkable, LDL 48, TSH normal 2.5, A1c 5.3 Pertinent positives and negatives as discussed above, a complete review of systems was performed and all other systems are negative. Vitals Signs Reviewed. General: [nontoxic], [no distress], [appears at stated age] Derm: [warm], [dry] Head: [atraumatic], [normocephalic], [symmetric] Eyes: [EOMI], [no lid lag], [anicteric sclera] Mouth: [no lip lesion], [mucus membranes moist] Cardiovascular: [S1S2 reg], [no murmur] Lungs: [CTA bilateral], [no rhonchi, no rales] , [no accessory muscle use] Abdominal: [soft], [ nontender to palpation], [no guarding], [no appreciable organomegaly] Ext: [no gross muscle atrophy], [no edema], [no contractures] Neuro: [ CN II-XI grossly intact], [no focal neuro deficits] Psych: [Alert], [oriented], [appropriate affect] Atypical chest pain - Start aspirin 81 mg daily - Cardiology consulted, appreciate recommendations -TTE ordered and pending, discussed with cardiology -Sublingual nitroglycerin as needed Hypertension: Continue home lisinopril/hydrochlorothiazide 10/12.5 daily Hypochloremic hyponatremia -Start NS at 120 cc/h, monitor BMP in the morning History of DVT: Pharmacy to dose warfarin COPD, not in acute exacerbation, continue Incruse Ellipta 62.5 daily, Wixela 250/50 twice daily CODE STATUS: Full DVT prophylaxis: Warfarin Anticipated discharge date: TB Anticipated discharge place: Home Objective - Vital Signs Vital signs: Vital Signs Temp 98.3 F 12/17/24 14:50 Pulse 75 12/17/24 14:50 Resp 16 12/17/24 14:50 BP 113/70 12/17/24 14:50 Pulse Ox 97 12/17/24 14:50 FiO2 Intake & Output 12/16/24 12/17/24 12/17/24 18:59 06:59 18:59 Intake Total 118 Balance 118 Weight 83.915 kg 83.915 kg Intake: Oral 118 Other: Voiding Method Toilet # Voids 2 3 # Bowel Movements 0 - Labs CBC & Chem 7: 12/16/24 11:51 12/17/24 05:06 Labs: Abnormal Lab Results - Last 24 Hours (Table) 12/16/24 12/17/24 12/17/24 Range/Units 11:51 05:06 05:06 PT 18.4 H (10.0-12.5) sec INR 1.8 H (<1.2) Calcium 8.4 L (8.7-10.3) mg/dL HDL Cholesterol 88.30 H (40.00-60.00) mg/dL
[2024-12-17] MEDS: WARFARIN 5 MG TAB PO ONE (20:15)
[2024-12-18 05:45] LABS: Prothrombin Time 20.3 sec (10.0-12.5)
[2024-12-18 08:08] VITALS: RESP 16
--- NOTE | 2024-12-18 11:11 | P.PN ---
Subjective HISTORY OF PRESENT ILLNESS: This is a 64-year-old male with a past medical history significant for DVT, COPD, and daily alcohol use. 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 We have been asked to see the patient in consultation for chest pain. Patient examined at the bedside. Patient states he has been having chest pain for the past 2 weeks. He states the last couple days it has gotten worse. He reports if he burps or passes gas, the pain improves. The pain is not exertional related. Pain is not worse with deep inspiration. Denies radiation of the pain. Denies sweating or nausea or vomiting. At the time of examination, he denies chest pain or pressure. Denies SOB. DIAGNOSTICS: - EKG reveals sinus mechanism with no signs of acute ischemia. - Chest xray negative for acute process. - Laboratory data: WBC 7.0. Hemoglobin 14.4. Platelet count 246. INR 1.8. D- dimer 0.17. Sodium 129. Potassium 4.0. BUN 9. Creatinine 0.54. Troponin negative x 4. TSH 2.50 - Current home cardiac medications include warfarin 10 mg on Monday and Monday and 5 mg Monday and lisinoprilhydrochlorothiazide 10-12.5 mg daily - No previous echocardiogram, stress test, or cardiac catheterization available in EMR for review 12/18/2024 Patient examined this morning's bedside. Patient denies any chest pain or pr essure. He denies shortness of breath. Vital signs are stable. 2D echo remains pending. INR today 2.0. PHYSICAL EXAM: VITAL SIGNS: Reviewed. GENERAL: Well-developed in no acute distress. HEENT: Head is normocephalic. Pupils are equal, round. Sclerae anicteric. Mucous membranes of the mouth are moist. Neck supple. No JVD or thyromegaly LUNGS: Respirations even and unlabored. Lungs essentially clear to auscultation bilaterally. HEART: Regular rate and rhythm. S1 and S2 heard. ABDOMEN: Soft. Nondistended. Nontender. EXTREMITIES: Normal range of motion. No clubbing or cyanosis. Peripheral pulses intact. No lower extremity edema NEUROLOGIC: Awake and alert. Oriented x 3. ASSESSMENT: Chest pain, troponin negative x 4, appears GI related Hyponatremia History of DVT, on Coumadin outpatient Subtherapeutic INR Hypertension History of COPD Daily alcohol use PLAN: An acute coronary event has been ruled out 2D echo ordered. Await results. Continue Coumadin. Monitor INR Abstinence from alcohol recommended May discharge home today pending echo results Will plan for outpatient stress testing Further recommendations pending patient course Nurse practitioner note has been reviewed by physician. Signing provider agrees with the documented findings, assessment, and plan of care documented by FREIGHT CALLER as a scribe. Objective - Vital Signs Vital signs: Vital Signs Temp 97.8 F 12/18/24 07:02 Pulse 84 12/18/24 07:02 Resp 16 12/18/24 07:02 BP 122/76 12/18/24 07:02 Pulse Ox 95 12/18/24 07:02 FiO2 Intake & Output 12/17/24 12/18/24 12/18/24 18:59 06:59 18:59 Intake Total 236 180 Balance 236 180 Intake: Oral 236 180 Other: Voiding Method Toilet Toilet # Voids 3 2 # Bowel Movements 0 0 - Labs CBC & Chem 7: 12/16/24 11:51 12/17/24 05:06 Labs: Abnormal Lab Results - Last 24 Hours (Table) 12/18/24 Range/Units 04:38 PT 20.3 H (10.0-12.5) sec INR 2.0 H (<1.2)
--- NOTE | 2024-12-18 13:54 | P.DS ---
Providers Date of admission: 12/16/24 14:13 Attending physician: Laurie Hanna MD Consults: 12/16/24 23:11 Consult Physician Routine Consulting Provider: Estefania Maravilla Consult Reason/Comments: chest pain Do you want consulting provider notified?: Yes Primary care physician: Levar Zunigaskye [facility] Course: Discharge Diagnosis: Chest pain, ACS ruled out Hypertension Hypochloremic hyponatremia History of DVT COPD not in acute exacerbation Hospital Course: Patient is a 64-year-old male with past medical history of DVT for than 20 years ago on Coumadin, unclear why, reports only 1 episode of DVT, HLD, COPD, who presented to the ER on 12/16 with chest pain. Started having symptoms 2 weeks ago, reports intermittent chest pain, left-sided, nonradiating, not associated with shortness of breath, sweating, nausea, vomiting. States that it can occur at any time including nighttime, he is able to cut the grass and stay active, reports that the pain gets better when he leans forward. No other elevating factors, denies noticing any aggravating factors. He denies any recent travels, compliant with Coumadin. No previous history of heart attacks, no dizziness, lightheadedness. No recent viral infections, no fevers, chills, abdominal pain. On arrival afebrile, heart rate in 80s, BP 135/85, SpO2 98% on room air. Lab work showed normal WBC count, hemoglobin, platelet count. INR 1.9, PT 19.3, D-dimer negative. Sodium 129, normal potassium, chloride 96, creatinine 0.54, normal GFR, calcium, and liver enzymes, troponin negative. Chest x-ray showed no evidence of acute pulmonary process. Patient will be admitted under observation for further evaluation of chest pain, cardiology consultation. ACS has been ruled out, cardiology recommended TTE. TTTE was performed however could not be read due to EMR downtime, discussed with cardiology, patient can be discharged with outpatient follow-up Patient seen and examined at bedside.[] Vital signs reviewed and stable. General: [nontoxic], [no distress], [appears at stated age] Derm: [warm], [dry] Head: [atraumatic], [normocephalic], [symmetric] Eyes: [EOMI], [no lid lag], [anicteric sclera] Mouth: [no lip lesion], [mucus membranes moist] Cardiovascular: [S1S2 reg], [no murmur] Lungs: [CTA bilateral], [no rhonchi, no rales] , [no accessory muscle use] Abdominal: [soft], [ nontender to palpation], [no guarding], [no appreciable organomegaly] Ext: [no gross muscle atrophy], [no edema], [no contractures] Neuro: [ CN II-XI grossly intact], [no focal neuro deficits] Psych: [Alert], [oriented], [appropriate affect] A total of 40 minutes of time were spent preparing this complex discharge summary. Patient was discharged on 12/18/2024. Plan - Discharge Summary Discharge Rx Participant: Yes New Discharge Prescriptions: New Folic Acid 1 mg PO DAILY #30 tab Thiamine [Vitamin B-1] 100 mg PO DAILY #30 tab Nitroglycerin Sl Tabs [Nitrostat] 0.4 mg SUBLINGUAL Q10M PRN #30 tab PRN Reason: Chest Pain Continue Lisinopril-Hctz 10-12.5 mg [Zestoretic 10-12.5] 1 tab PO DAILY Umeclidinium [place] [Incruse Ellipta] 1 puff INHALATION RT-DAILY [facility](Unknown) 1 tab PO DAILY Warfarin Sodium 5 mg PO MOTUTHFRSA@2100 Warfarin Sodium 10 mg PO SUWE@2100 Fluticasone Propion/Salmeterol [Wixela 250-50 Inhub] 1 puff INHALATION RT-BID [facility](Unknown) 1 cap PO DAILY Discharge Medication List Lisinopril-Hctz 10-12.5 mg [Zestoretic 10-12.5] 1 tab PO DAILY 04/27/23 [History] Warfarin Sodium 5 mg PO MOTUTHFRSA@2100 04/27/23 [History] Warfarin Sodium 10 mg PO SUWE@2100 04/27/23 [History] Fluticasone Propion/Salmeterol [Wixela 250-50 Inhub] 1 puff INHALATION RT-BID 12/16/24 [History] Umeclidinium [place] [Incruse Ellipta] 1 puff INHALATION RT-DAILY 12/16/24 [History] [facility](Unknown) 1 tab PO DAILY 12/16/24 [History] [facility](Unknown) 1 cap PO DAILY 12/16/24 [History] Folic Acid 1 mg PO DAILY #30 tab 12/17/24 [Rx] Nitroglycerin Sl Tabs [Nitrostat] 0.4 mg SUBLINGUAL Q10M PRN #30 tab 12/17/24 [Rx] Thiamine [Vitamin B-1] 100 mg PO DAILY #30 tab 12/17/24 [Rx] Follow up Appointment(s)/Referral(s): Suhas Good MD [Primary Care Provider] - 1-2 days Darrin Ratliff DO [STAFF PHYSICIAN] - 1 Week Patient Instructions/Handouts: Chest Pain (DC) Activity/Diet/Wound Care/Special Instructions: Please, follow-up with your primary care physician and cardiology. Continue medications as prescribed. Discuss with your primary care physician continues use of warfarin. Monitor your blood pressure daily, keep a log of the readings to discuss with your medical team. Discharge Disposition: HOME SELF-CARE
[2024-12-18 14:47] VITALS: BP 109/69; PULSE 78; TEMP 98.2
[2024-12-18] MEDS ORDERED: WARFARIN 10 MG TAB PO ONE (18:00)
--- NOTE | 2024-12-18 19:45 | CA ---
Transthoracic Echo Report Name: Beck Galvin Age: 64 Gender: M : 1960 Exam Date: 12/18/2024 14:34 Exam Location: [facility] Ht (in): 67 Wt (lb): 185 Ordering Physician: Maria Fernanda Rose Attending/Referring Phys: [id number], Rose Siebel Solution Architect Fuentes Turpin RDCS Procedure CPT: Indications: Chest pain, hypertension, daily alcohol use Cardiac Hx: Technical Quality: Good Contrast 1: Total Dose (mL): Contrast 2: Total Dose (mL): MEASUREMENTS (Male / Female) Normal Values 2D ECHO LV Diastolic Diameter PLAX 4.6 cm 4.2 - 5.9 / 3.9 - 5.3 cm LV Systolic Diameter PLAX 3.4 cm IVS Diastolic Thickness 1.0 cm 0.6 - 1.0 / 0.6 - 0.9 cm LVPW Diastolic Thickness 1.0 cm 0.6 - 1.0 / 0.6 - 0.9 cm LV Relative Wall Thickness 0.4 RV Internal Dim ED PLAX 4.1 cm LVOT Diameter 2.3 cm LA Systolic Diameter LX 3.4 cm 3.0 - 4.0 / 2.7 - 3.8 cm LV Diastolic Volume MOD BP 120.0 cm??? 67 - 155 / 56 - 104 cm??? LV Systolic Volume MOD BP 58.8 cm??? 22 - 58 / 19 - 49 cm??? LV Ejection Fraction MOD BP 51.0 % >= 55 % LV Cardiac Index MOD BP 2158.7 cm???/min???m??? LV Diastolic Volume MOD 4C 117.4 cm??? LV Systolic Volume MOD 4C 52.7 cm??? LV Ejection Fraction MOD 4C 55.1 % LV Cardiac Index MOD 4C 2282.8 cm???/min???m??? LV Diastolic Length 4C 8.9 cm LV Systolic Length 4C 7.6 cm LV Diastolic Volume MOD 2C 117.2 cm??? LV Systolic Volume MOD 2C 65.3 cm??? LV Ejection Fraction MOD 2C 44.3 % LV Cardiac Index MOD 2C 1832.1 cm???/min???m??? LV Diastolic Length 2C 9.3 cm LV Systolic Length 2C 7.8 cm LA Volume 52.8 cm??? 18 - 58 / 22 - 52 cm??? LA Volume Index 26.2 cm???/m??? 16 - 28 cm???/m??? DOPPLER MV Area PHT 4.3 cm??? Mitral E Point Velocity 63.1 cm/s Mitral A Point Velocity 56.5 cm/s Mitral E to A Ratio 1.1 MV Deceleration Time 177.0 ms TR Peak Velocity 248.5 cm/s TR Peak Gradient 24.7 mmHg Right Atrial Pressure 5.0 mmHg Pulmonary Artery Systolic Pressu 29.7 mmHg Right Ventricular Systolic Press 29.7 mmHg FINDINGS Left Ventricle Left ventricular ejection fraction is estimated at 50-55 %. Left ventricular systolic function borderline normal.left ventricular cavity size normal. Right Ventricle Normal right ventricular size. Right ventricular systolic pressure within normal limits. Right Atrium Normal right atrial size. Left Atrium Normal left atrial size. Mitral Valve Mitral valve thickened. Mitral annular calcification. No mitral stenosis. Mild mitral regurgitation. Aortic Valve Trileaflet aortic valve. Thickened aortic valve without stenosis. mild aortic regurgitation. Tricuspid Valve Structurally normal tricuspid valve. No tricuspid stenosis. Mild tricuspid regurgitation. Pulmonic Valve Structurally normal pulmonic valve. No pulmonic stenosis. Trace pulmonic regurgitation. Pericardium No pericardial effusion. Aorta Mildly dilated aortic annulus. CONCLUSIONS 1. Left ventricular systolic function borderline normal 2. Mild mitral and tricuspid regurgitation with no evidence of pulmonary hypertension Previewed by: Dr. Estefania Maravilla MD (Electronically Signed) Final Date: 18 December 2024 19:44
== END 2024-12-18 15:38 | disposition home or self-care (01) ==
LOC: EC 11:10 → 6NMEDSUR 14:13
PROVIDERS: ADMIT Student in an Organized Health Care Education/Training Program; ATTEND Student in an Organized Health Care Education/Training Program
DX: R07.89 Other chest pain (principal); E87.1 Hypo-osmolality and hyponatremia; R79.1 Abnormal coagulation profile; I10 Essential (primary) hypertension; E78.5 Hyperlipidemia, unspecified; J44.89 Other specified chronic obstructive pulmonary disease; Z86.718 Personal history of other venous thrombosis and embolism; Z85.828 Personal history of other malignant neoplasm of skin; Z79.01 Long term (current) use of anticoagulants; Z79.899 Other long term (current) drug therapy; Z79.51 Long term (current) use of inhaled steroids
CPT/HCPCS: 99285; 36415; 94640 ×2; 93005; 93306; 85379; 80061; 80053; 80048; 84443; 83735; 84484 ×2; 85025; 85610 ×3; 85730; 83036; 71046; G0378 ×3